=== PATIENT | female | born 1995 | race Caucasian/White ===

== ENCOUNTER 2020-07-20 12:04 | Inpatient (IN) | payer BC ==
[2020-07-20] MEDS ORDERED: DEXTROSE 5%-LACTATED RINGERS 1,000 ML IV SCH (13:30)
[2020-07-20] MEDS ORDERED: LIDOCAINE 0.5% (PF) 5 MG/ML (50 ML SDV) SQ PRN (13:38)
[2020-07-20] MEDS ORDERED: TERBUTALINE 1 MG/ML VIAL SQ PRN (13:38)
[2020-07-20] MEDS ORDERED: OXYTOCIN 10 UNIT/ML 1 ML VIAL IM PRN (13:38)
[2020-07-20] MEDS ORDERED: METHYLERGONOVINE 0.2 MG/ML 1 ML AMP IM PRN (13:38)
[2020-07-20] MEDS ORDERED: CARBOPROST TROMETHAMINE 250 MCG/ML 1 ML AMP IM PRN (13:38)
[2020-07-20] MEDS ORDERED: OXYTOCIN 30 UNITS/500 ML NS 30 UNIT in SALINE 1 500ML.BAG IV SCH (13:45)
[2020-07-20] MEDS: LACTATED RINGERS 1,000 ML IV SCH ×2 (14:01→19:18)
[2020-07-20 14:17] LABS: Basophils % (A) 0 %; Eosinophils # (A) 0.1 k/uL (0-0.7); Eosinophils % (A) 0 %; HCT 41.5 % (34.0-46.0); HGB 13.6 gm/dL (11.4-16.0); Lymphocytes # (A) 1.1 k/uL (1.0-4.8); Lymphocytes % (A) 9 %; MCH 32.4 pg (25.0-35.0); MCHC 32.8 g/dL (31.0-37.0); MCV 98.7 fL (80.0-100.0); Mean Platelet Volume 8.9; Monocytes # (A) 0.6 k/uL (0-1.0); Monocytes % (A) 5 %; Neutrophils # (A) 10.1 k/uL (1.3-7.7); Neutrophils % (A) 84 %; Platelet Count 153 k/uL (150-450); RBC 4.21 m/uL (3.80-5.40); RDW 14.3 % (11.5-15.5)
--- NOTE | 2020-07-20 15:21 | P.HPOB ---
History of Present Illness H&P Date: 07/20/20 Chief Complaint: Uterine contractions This is a 25-year-old white female 1 para 0 EDC 07/22/2020 39-5/7 weeks' gestation. Patient presented with regular uterine contractions. She was monitored in the triage area and made a small amount of cervical slip cover maker an hour. heart rate was revealing minimal variability, the decision was made to admit the patient for augmentation of labor. Fetus is been active throughout the . She denied vaginal bleeding or fluid leakage. Blood type is AB+, rubella status immune. VDRL testing, hepatitis B surface antigen, urine culture, group B strep cultures, gonorrhea and chlamydia cultures are all negative. One-hour Glucola 135. Flu shot administered. history otherwise unremarkable. Past medical history is essentially negative. Past surgical history is negative. Current medications vitamins daily. ALLERGIES none known. Social history patient is , is present. She denies alcohol or drug use. No tobacco smoking. Family history significant for hypertension. On exam this is a pleasant young female who is 5 foot 0 inches, 198 pounds, blood pressure 118/79, pulse 112. The general physical exam is within normal limits. Cervix is 47 m dilated, 80% effaced, -2 station, vertex presentation. Artificial amniorrhexis reveals thin meconium-stained fluid. Internal scalp lead is applied. Uterine contractions are occurring approximately every 3-4 minutes apart of mild intensity. heart rate is in the 140s with minimal variability. Impression: 39-5/7 weeks intrauterine , early active labor, meconium- stained fluid, minimal variability noted on heart tracing with no decelerations. Plan: Oxytocin augmentation per hospital protocol. Close maternal and surveillance. Anticipating normal spontaneous vaginal delivery. The possibili ty of primary section pending heart rate status is discussed with the patient and her . All questions answered. Review of Systems Constitutional: Reports as per HPI Past Medical History Past Medical History: No Reported History History of Any Multi-Drug Resistant Organisms: None Reported Past Surgical History: No Surgical Hx Reported Past Anesthesia/Blood Transfusion Reactions: No Reported Reaction Past Psychological History: No Psychological Hx Reported Smoking Status: Never smoker Past Alcohol Use History: None Reported Past Drug Use History: None Reported - Past Family History Father Family Medical History: Hypertension Medications and Allergies Home Medications Medication Instructions Recorded Confirmed Type Ferrous Sulfate [Iron] 325 mg PO DAILY 07/20/20 07/20/20 History Pnv,Calcium 72/Iron/Folic Acid 1 tab PO DAILY 07/20/20 07/20/20 History [ Plus Tablet] Allergies Allergy/AdvReac Type Severity Reaction Status Date / Time No Known Allergies Allergy Verified 07/20/20 12:14 Exam Vital Signs Temp Pulse Resp BP 07/20/20 14:43 97.3 F L 123 H 16 143/86 07/20/20 14:28 97.2 F L 112 H 16 118/79 Intake and Output 07/20/20 07/20/20 07/20/20 06:59 14:59 22:59 Other: Weight 89.811 kg See dictation under HPI please Results Result Diagrams: 07/20/20 14:00 Abnormal Lab Results - Last 24 Hours (Table) 07/20/20 Range/Units 14:00 WBC 12.0 H (3.8-10.6) k/uL Neutrophils # 10.1 H (1.3-7.7) k/uL Assessment and Plan Assessment: 39-5/7 weeks intrauterine , early active labor, meconium-stained fluid. Internal scalp lead applied for minimal variability noted on external monitor. Plan: Continue close maternal and surveillance. Analgesic options reviewed with the patient. All questions answered. Anticipate normal spontaneous vaginal delivery, but the possibility of section pending status is also discussed. Time with Patient: Less than 30
[2020-07-20] MEDS ORDERED: ROPIVACAINE 5MG/ML 20ML VIAL ONE (17:19)
[2020-07-20] MEDS ORDERED: SODIUM CHLORIDE 0.9% 100 ML BAG ONE (17:19)
[2020-07-20] MEDS ORDERED: fentaNYL (PF) 50 MCG/ML 5 ML AMP ONE (17:19)
[2020-07-20] MEDS ORDERED: BENZOCAINE/MENTHOL SPRAY 1 GM/SPRAY AEROSOL TOPICAL PRN (21:54)
[2020-07-20] MEDS ORDERED: diphenhydrAMINE 25 MG CAP PO PRN (21:54)
[2020-07-20] MEDS ORDERED: LANOLIN CREAM 5 GM TUBE TOPICAL PRN (21:54)
[2020-07-20] MEDS ORDERED: diphenhydrAMINE ELIXIR 25 MG/10 ML CUP PO PRN (21:54)
[2020-07-20] MEDS ORDERED: diphenhydrAMINE 50 MG/ML 1 ML VIAL IVP PRN ×2 (21:54)
[2020-07-20] MEDS ORDERED: diphenhydrAMINE 50 MG CAP PO PRN (21:54)
[2020-07-20] MEDS ORDERED: ZOLPIDEM 5 MG TAB PO PRN (21:54)
[2020-07-20] MEDS ORDERED: HYDROCORTISONE 2.5% RECTAL CREAM 30 GM TUBE RECTAL PRN (21:54)
[2020-07-20] MEDS ORDERED: SIMETHICONE 80 MG CHEWABLE PO PRN (21:54)
--- NOTE | 2020-07-20 21:54 | P.PROBDLV ---
Vaginal Delivery Note - . Vaginal Delivery Note: This is a 25-year-old white female 1 para 0 EDC 07/22/2020 39-5/7 weeks' gestation. Patient presented with uterine contractions, spontaneous. She was noted to make mild cervical change in the triage area and decreased hhzo-oz-cgyb variability was identified. Therefore she was admitted and oxytocin augmentation was started. Artificial amniorrhexis revealed meconium-stained fluid, internal scalp lead was applied. Blood type is AB+, rubella status immune, group strep cultures negative. Please see dictated history and physical examination for details. Epidural was ultimately placed per her request. She progressed well through the first stage of labor and became completely dilated at 2051 hours. She began the second stage of labor at that time. Occasional variable decelerations were noted, and several late decelerations were noted as well. However cixz-mb-lfxr variability picked up and excellent progress was made in the second stage. The perineal body was prepped and draped in usual sterile fashion. Infant's head delivered occiput anterior and he restituted accordingly. There was a nuchal cord 3 that was reduced on the perineal body. The left or anterior shoulder was then gently delivered from underneath the pubic symphysis at which time the oropharynx, nasopharynx, and external nares were all bulb suctioned. Patient was officially delivered of a liveborn male infant at 2127 hours. Umbilical cord was doubly clamped and ligated, he was handed to waiting nurses for evaluation where scores of 7 and 8 at one and 5 minutes respectively were given. Uterus is then massaged. Placenta delivered spontaneously, it was inspected and noted to be deeply meconium-stained, but otherwise intact with trivascular cord at 2130 hours. Uterus is then massaged. Careful inspection of the cervix, vagina, perineum, periurethral, and perirectal areas revealed a second-degree midline laceration that was easily repaired in the usual sterile fashion utilizing 3-0 repeat suture. All sponge needle and enhancement counts are correct. Infant weighed 3670 g or 8 pounds 1.5 ounces. Patient is requesting circumcision for her son.
[2020-07-20] MEDS ORDERED: OXYTOCIN 20 UNITS/1000 ML NS 1,000 ML IV SCH (22:00)
[2020-07-20] MEDS: IBUPROFEN 600 MG TAB PO PRN (22:06)
[2020-07-21] MEDS: ACETAMINOPHEN TAB 325 MG TAB PO PRN (04:18)
--- NOTE | 2020-07-21 08:30 | P.PN ---
Subjective Progress Note Date: 07/21/20 Principal diagnosis: Post day #1 Slept well. Minimal lochia rubra. Pain well controlled. Tired, otherwise no complaints Objective - Vital Signs Vital signs: Vital Signs Temp 97.7 F 07/21/20 04:00 Pulse 103 H 07/21/20 04:00 Resp 16 07/21/20 04:00 BP 121/76 07/21/20 04:00 Pulse Ox Intake & Output 07/20/20 07/21/20 07/21/20 18:59 06:59 18:59 Output Total 600 Balance -600 Weight 89.811 kg Output: Estimated Blood Loss 600 Other: # Voids 1 - Constitutional General appearance: Present: average body habitus, cooperative - EENT Eyes: Present: PERRLA ENT: Present: hearing grossly normal - Neck Thyroid: bilateral: normal size - Respiratory Respiratory: bilateral: CTA - Cardiovascular Rhythm: regular - Gastrointestinal General gastrointestinal: Present: normal bowel sounds - Genitourinary Genitourinary Comment(s): Uterus firm, midline, symmetric, 18 week size, nontender. - Integumentary Integumentary: Present: normal - Neurologic Neurologic: Present: CNII-XII intact - Musculoskeletal Musculoskeletal: Present: gait normal, strength equal bilaterally - Psychiatric Psychiatric: Present: A&O x's 3, appropriate affect, intact judgment & insight - Labs CBC & Chem 7: 07/20/20 14:00 Labs: Abnormal Lab Results - Last 24 Hours (Table) 07/20/20 Range/Units 14:00 WBC 12.0 H (3.8-10.6) k/uL Neutrophils # 10.1 H (1.3-7.7) k/uL Assessment and Plan Assessment: Doing well day #1 Plan: Continue care. Anticipate discharge home tomorrow.
[2020-07-21] MEDS: SENNOSIDES-DOCUSATE SODIUM 1 EACH TAB PO SCH ×2 (08:33→19:53)
[2020-07-21] MEDS: IBUPROFEN 600 MG TAB PO PRN ×3 (08:33→19:53)
[2020-07-21 18:56] VITALS: RESP 16
[2020-07-22] MEDS: IBUPROFEN 600 MG TAB PO PRN ×3 (04:24→18:00)
[2020-07-22] MEDS: SENNOSIDES-DOCUSATE SODIUM 1 EACH TAB PO SCH (08:00)
[2020-07-22 08:21] VITALS: TEMP 98.1
--- NOTE | 2020-07-22 11:51 | P.DS ---
Providers Date of admission: 07/20/20 13:40 Expected date of discharge: 07/22/20 Attending physician: Kiki Brown Primary care physician: Stated None - Discharge Diagnosis(es) (1) Term Current Visit: Yes Status: Acute (2) Meconium in amniotic fluid Current Visit: Yes Status: Acute (3) Normal spontaneous vaginal delivery Current Visit: Yes Status: Acute (4) Nuchal cord Current Visit: Yes Status: Acute (5) Perineal laceration with delivery, second degree Current Visit: Yes Status: Acute Hospital Course: This is a 25-year-old 1 now para 1 woman who is admitted at 39-5/7 weeks gestation with spontaneous uterine contractions. She had some decreased variability of the heart rate tracing in triage and the decision was made to admit for induction of labor. She received Pitocin induction of labor and artificial rupture of membranes. Meconium staining of the fluid was noted at time of rupture. She received an epidural anesthetic and went on to deliver a liveborn male . Delivery was notable for nuchal cord 3. Apgars were 7 at 1 minute and 8 at 5 minutes and weight was 8 lbs. 2 oz. Please see delivery summary for details. The was admitted to the special care nursery for further evaluation. By day #1 the patient was doing very well. She was ambulating and voiding without difficulty and was using the breast pump. Her vital signs were stable and her lochia was decreasing. By day #2 she continued to do well. She is successfully using the breast pump. Her lochia had significantly decreased and her pain was well-controlled with oral ibuprofen. She was therefore discharged home with routine instructions for care and follow-up. Patient Condition at Discharge: Good Plan - Discharge Summary New Discharge Prescriptions: No Action Pnv,Calcium 72/Iron/Folic Acid [ Plus Tablet] 1 tab PO DAILY Ferrous Sulfate [Iron] 325 mg PO DAILY Discharge Medication List Ferrous Sulfate [Iron] 325 mg PO DAILY 07/20/20 [History] Pnv,Calcium 72/Iron/Folic Acid [ Plus Tablet] 1 tab PO DAILY 07/20/20 [History] Follow up Appointment(s)/Referral(s): Kiki Brown MD [STAFF PHYSICIAN] - 6 Weeks Activity/Diet/Wound Care/Special Instructions: Follow-up in the office in 6 weeks . Call with any concerning signs or symptoms including heavy vaginal bleeding, severe abdominal pain, fever greater than 101, swelling or redness of the lower extremities, foul vaginal discharge, or signs of depression. Nothing in the vagina for 6 weeks after delivery, specifically no intercourse. Discharge Disposition: HOME SELF-CARE
[2020-07-22 17:02] VITALS: BP 110/66; PULSE 70
[2020-07-22] MEDS: ACETAMINOPHEN TAB 325 MG TAB PO PRN (20:32)
== END 2020-07-22 21:50 | disposition home or self-care (01) | DRG 807 ==
LOC: FBPOP 12:04 → 4FBP 13:40
PROVIDERS: ADMIT Obstetrics & Gynecology; ATTEND Obstetrics & Gynecology
PROC: 10E0XZZ Delivery of Products of Conception, External Approach (ICD-10-PCS; principal; 2020-07-20)
PROC: 0KQM0ZZ Repair Perineum Muscle, Open Approach (ICD-10-PCS; 2020-07-20)
PROC: 3E0R3BZ Introduction of Anesthetic Agent into Spinal Canal, Percutaneous Approach (ICD-10-PCS; 2020-07-20)
DX: O77.0 Labor and delivery complicated by meconium in amniotic fluid (principal); Z37.0 Single live birth; Z3A.39 39 weeks gestation of pregnancy; Z79.899 Other long term (current) drug therapy; O76 Abnormality in fetal heart rate and rhythm complicating labor and delivery; O69.81X0 Labor and delivery complicated by cord around neck, without compression, not applicable or unspecified; O70.1 Second degree perineal laceration during delivery; Z23 Encounter for immunization; Z82.49 Family history of ischemic heart disease and other diseases of the circulatory system
CPT/HCPCS: 59025; 85025; 86850; 86900; 86901; 99213

== ENCOUNTER 2023-05-03 12:12 | Inpatient (IN) | payer BC ==
[2023-05-12] MEDS ORDERED: TRANEXAMIC 1,000 MG/100ML-NACL 1,000 MG in EMPTY BAG 1 BAG IV PRN (06:38)
[2023-05-12] MEDS ORDERED: CARBOPROST TROMETHAMINE 250 MCG/ML 1 ML AMP IM PRN (06:38)
[2023-05-12] MEDS ORDERED: LIDOCAINE 0.5% (PF) 5 MG/ML (50 ML SDV) SQ PRN (06:38)
[2023-05-12] MEDS ORDERED: TERBUTALINE 1 MG/ML VIAL SQ PRN (06:38)
[2023-05-12] MEDS ORDERED: METHYLERGONOVINE 0.2 MG/ML 1 ML AMP IM PRN (06:38)
[2023-05-12] MEDS ORDERED: miSOPROStoL 200 MCG TAB PO PRN (06:38)
[2023-05-12] MEDS ORDERED: OXYTOCIN 10 UNIT/ML 1 ML VIAL IM PRN (06:38)
[2023-05-12 06:44] LABS: Basophils % (A) 1 %; Eosinophils # (A) 0.1 k/uL (0-0.7); Eosinophils % (A) 1 %; HCT 35.9 % (34.0-46.0); HGB 12.5 gm/dL (11.4-16.0); Lymphocytes # (A) 1.9 k/uL (1.0-4.8); Lymphocytes % (A) 25 %; MCH 32.6 pg (25.0-35.0); MCHC 34.8 g/dL (31.0-37.0); MCV 93.8 fL (80.0-100.0); Mean Platelet Volume 8.6; Monocytes # (A) 0.5 k/uL (0-1.0); Monocytes % (A) 6 %; Neutrophils # (A) 5.1 k/uL (1.3-7.7); Neutrophils % (A) 66 %; Platelet Count 143 k/uL (150-450); RBC 3.82 m/uL (3.80-5.40); RDW 14.4 % (11.5-15.5); WBC 7.7 k/uL (3.8-10.6)
[2023-05-12] MEDS ORDERED: OXYTOCIN 30 UNITS/500 ML NS 30 UNIT in SALINE 1 500ML.BAG IV SCH ×2 (06:45→16:15)
[2023-05-12] MEDS: LACTATED RINGERS 1,000 ML IV SCH ×2 (06:55→11:00)
--- NOTE | 2023-05-12 08:33 | P.HPOB ---
History of Present Illness H&P Date: 05/12/23 Chief Complaint: induction of labor for post-dates Ms. Lopez is a 28 year old at 41 weeks and 0 day with EDC of 05/05/2023 (by 8 week US not consistent with LMP) who presents to labor and delivery for induction of labor for post-dates. The has been uncomplicated. Growth ultrasound of the fetus at 31 weeks estimated weight to be in the 63%ile. Obstetric history: 1 at 39 weeks for male fetus weighing 8#1.5oz, no complications. Maternal work-up: GBS negative Past medical history: None Past surgical history: None Medications: vitamins Past Medical History Past Medical History: No Reported History History of Any Multi-Drug Resistant Organisms: None Reported Past Surgical History: No Surgical Hx Reported Past Anesthesia/Blood Transfusion Reactions: No Reported Reaction Past Psychological History: No Psychological Hx Reported Smoking Status: Never smoker Past Alcohol Use History: None Reported Past Drug Use History: None Reported - Past Family History Father Family Medical History: Hypertension Medications and Allergies Home Medications Medication Instructions Recorded Confirmed Type Vit No.180/Iron/Folic 1 tab PO DAILY 07/20/20 05/12/23 History [ Plus Tablet] Allergies Allergy/AdvReac Type Severity Reaction Status Date / Time No Known Allergies Allergy Verified 08/13/21 13:50 Exam Vital Signs Temp Pulse Resp BP 05/12/23 08:00 97.2 F L 91 16 103/72 Intake and Output 05/11/23 05/12/23 05/12/23 22:59 06:59 14:59 Other: Weight 88.904 kg 88.904 kg Focused physical exam is performed. This is a healthy-appearing in no apparent distress. Breathing is non-labored. Abdomen is soft, non-tender, gravid. Cervix is 3 centimeters dilated, 60% effaced, and -2 station. AROM is undertaken revealing clear amniotic fluid. Extremities are non-tender, non- edematous. heart tracing is Category I on pitocin. Tocometer is graphing c ontractions every 5-7 minutes. Results Result Diagrams: 05/12/23 06:38 Abnormal Lab Results - Last 24 Hours (Table) 05/12/23 Range/Units 06:38 Plt Count 143 L (150-450) k/uL Assessment and Plan Assessment: 28 year old at 41 weeks and 0 days here for IOL Plan: Admit, NPO, mIVF, pitocin per protocol, s/p AROM for clear fluid, epidural prn. Continuous EFM and tocometer. Close monitoring of patient. Time with Patient: Less than 30 (10 minutes)
[2023-05-12] MEDS ORDERED: fentaNYL (PF) 50 MCG/ML 5 ML AMP ONE (11:21)
[2023-05-12] MEDS ORDERED: ROPIVACAINE 5 MG/ML 20 ML AMPULE ONE (11:21)
[2023-05-12] MEDS ORDERED: SODIUM CHLORIDE 0.9% 100 ML BAG ONE (11:21)
[2023-05-12] MEDS ORDERED: diphenhydrAMINE 25 MG CAP PO PRN (16:07)
[2023-05-12] MEDS ORDERED: SIMETHICONE 80 MG CHEWABLE PO PRN (16:07)
[2023-05-12] MEDS ORDERED: diphenhydrAMINE 50 MG CAP PO PRN (16:07)
[2023-05-12] MEDS ORDERED: diphenhydrAMINE 50 MG/ML 1 ML VIAL IVP PRN ×2 (16:07)
[2023-05-12] MEDS ORDERED: LANOLIN CREAM 5 GM TUBE TOPICAL PRN (16:07)
[2023-05-12] MEDS ORDERED: ZOLPIDEM 5 MG TAB PO PRN (16:07)
[2023-05-12] MEDS ORDERED: BENZOCAINE/MENTHOL SPRAY 1 GM/SPRAY AEROSOL TOPICAL PRN (16:07)
[2023-05-12] MEDS ORDERED: HYDROCORTISONE 2.5% RECTAL CREAM 30 GM TUBE RECTAL PRN (16:07)
--- NOTE | 2023-05-12 16:07 | P.PROBDLV ---
Vaginal Delivery Note - . Vaginal Delivery Note: DATE OF SERVICE: 05/12/2023 PROCEDURE: Normal Vaginal Delivery ATTENDING: Dr. Bea Gomes MD ESTIMATED BLOOD LOSS: 150 mL FINDINGS: VFI, Apgars 9/9. Weight 8 pounds and 8 ounces (3840 grams) PROCEDURE: Mrs. Lopez is a 28 year old at 41 weeks presenting to labor and delivery for induction of labor for post-dates . The has been uncomplicated. For further details, please review the admitting H&P. Pitocin induction was started and AROM was undertaken revealing clear amniotic fluid. The patient received epidural anesthesia per her request. The patient was completely dilated at 1523. The patient pushed effectively, bringing the head down. The head was delivered over an intact perineum without difficulty followed by shoulder and body. A viable female was delivered at 1540. The infant was placed on the maternal abdomen and bulb suctioned. Cord was clamped and cut after a 30-second delay. The infant was handed off to the pediatric team. The umbilical cord was avulsed from the placenta. Placenta was manually removed at 1545. The placenta was inspecetd and found to be intact. Oxytocin was started to facilitate uterine tone. Uterine fundus was found to be firm and below the umbilicus upon fundal massage. Thorough examination of the cervix, vagina, periurethral area, and perineum revealed a small second degree laceration. The patient is stable and allowed to begin the bonding process.require repair and an intact perineum. Patient stable .
[2023-05-12] MEDS: IBUPROFEN 600 MG TAB PO PRN ×2 (16:35→23:48)
[2023-05-12] MEDS: SENNOSIDES-DOCUSATE SODIUM 1 EACH TAB PO SCH (20:31)
[2023-05-12] MEDS: ACETAMINOPHEN TAB 325 MG TAB PO PRN (20:31)
[2023-05-13] MEDS: IBUPROFEN 600 MG TAB PO PRN ×2 (05:56→11:12)
[2023-05-13 07:10] LABS: Basophils % (A) 0 %; Eosinophils # (A) 0.1 k/uL (0-0.7); Eosinophils % (A) 1 %; HCT 32.3 % (34.0-46.0); HGB 10.8 gm/dL (11.4-16.0); Lymphocytes # (A) 2.1 k/uL (1.0-4.8); Lymphocytes % (A) 25 %; MCH 31.6 pg (25.0-35.0); MCHC 33.6 g/dL (31.0-37.0); MCV 94.2 fL (80.0-100.0); Mean Platelet Volume 8.1; Monocytes # (A) 0.5 k/uL (0-1.0); Monocytes % (A) 6 %; Neutrophils # (A) 5.7 k/uL (1.3-7.7); Neutrophils % (A) 67 %; Platelet Count 127 k/uL (150-450); RBC 3.43 m/uL (3.80-5.40); RDW 14.4 % (11.5-15.5); WBC 8.5 k/uL (3.8-10.6)
[2023-05-13] MEDS: ACETAMINOPHEN TAB 325 MG TAB PO PRN (08:50)
[2023-05-13] MEDS: SENNOSIDES-DOCUSATE SODIUM 1 EACH TAB PO SCH (08:50)
[2023-05-13 09:09] VITALS: BP 116/78; PULSE 89; RESP 16; TEMP 97.9
--- NOTE | 2023-05-13 13:15 | P.DS ---
Providers Date of admission: 05/12/23 06:22 Expected date of discharge: 05/13/23 Attending physician: Bea Gomes MD Primary care physician: Stated None Hospital Course: This is a 28-year-old who is now day #1 status post a normal vaginal delivery after induction of labor for postdates. The patient is doing well this morning and had no acute events overnight. She has no complaints this morning. She reports minimal lochia, passing flatus, voiding without difficulty, ambulating, and eating/drinking without nausea or vomiting. Infant doing well at bedside, is going well. She denies chest pain, shortness of breathing, fevers, or chills overnight. She denies pain or swelling in the legs. restrictions are reviewed with the patient including pelvic rest for 6 weeks. The patient is encouraged to call the office if she experiences any heavy bleeding, foul-smelling discharge, breast complaints, or any if she has any other concerns. She will follow up in the office within 6 weeks for exam. All questions are answered. Assessment: 28 year old now PPD#1 s/p normal vaginal delivery Patient Condition at Discharge: Good Plan - Discharge Summary Discharge Rx Participant: No New Discharge Prescriptions: No Action Vit No.180/Iron/Folic [ Plus Tablet] 1 tab PO DAILY Discharge Medication List Vit No.180/Iron/Folic [ Plus Tablet] 1 tab PO DAILY 07/20/20 [History] Follow up Appointment(s)/Referral(s): Bea Gomes MD [STAFF PHYSICIAN] - 6 Weeks Activity/Diet/Wound Care/Special Instructions: Instructions 1. Do not begin any exercise program for 3 weeks. 2. Do not resume sexual relations for 6 weeks or longer if uncomfortable. 3. You may take tub baths or showers at any time. 4. You may use tampons if desired after 6 weeks. 5. Keep any areas repaired with stitches clean and dry. 6. If you are not nursing, wear a good fitting, supportive bra during the day and limit fluid intake for at least 1 week to prevent breast engorgement. 7. Call the office, , within the next week to make appointment for your 6 week checkup if it has not already been made. 8. Report any of the following occurrences to the doctor promptly: a. Heavy, excessive bleeding b. Chills, fever c. Burning or frequency of urination d. Pain or redness and breasts if nursing e. Increasing pain or swelling of vulva (stitches). Discharge Disposition: HOME SELF-CARE
== END 2023-05-13 16:00 | disposition home or self-care (01) | DRG 807 ==
LOC: 4FBP 05-12 06:22
PROVIDERS: ADMIT Obstetrics & Gynecology; ATTEND Obstetrics & Gynecology
PROC: 3E033VJ Introduction of Other Hormone into Peripheral Vein, Percutaneous Approach (ICD-10-PCS; principal; 2023-05-12)
PROC: 10E0XZZ Delivery of Products of Conception, External Approach (ICD-10-PCS; 2023-05-12)
PROC: 0KQM0ZZ Repair Perineum Muscle, Open Approach (ICD-10-PCS; 2023-05-12)
PROC: 10907ZC Drainage of Amniotic Fluid, Therapeutic from Products of Conception, Via Natural or Artificial Opening (ICD-10-PCS; 2023-05-12)
PROC: 3E0R3BZ Introduction of Anesthetic Agent into Spinal Canal, Percutaneous Approach (ICD-10-PCS; 2023-05-12)
DX: O48.0 Post-term pregnancy (principal); Z37.0 Single live birth; O70.1 Second degree perineal laceration during delivery; Z3A.41 41 weeks gestation of pregnancy; Z28.310 Unvaccinated for COVID-19
CPT/HCPCS: 85025; 86850; 86900; 86901

== ENCOUNTER 2025-02-07 06:17 | Inpatient (IN) | payer BC ==
[2025-02-07] MEDS ORDERED: OXYTOCIN 10 UNIT/ML 1 ML VIAL IM PRN (06:24)
[2025-02-07] MEDS ORDERED: TRANEXAMIC 1,000 MG/100ML-NACL 1,000 MG in EMPTY BAG 1 BAG IV PRN (06:24)
[2025-02-07] MEDS ORDERED: CARBOPROST TROMETHAMINE 250 MCG/ML 1 ML AMP IM PRN (06:24)
[2025-02-07] MEDS ORDERED: LIDOCAINE 0.5% (PF) 5 MG/ML (50 ML SDV) SQ PRN (06:24)
[2025-02-07] MEDS ORDERED: miSOPROStoL 200 MCG TAB RECTAL PRN (06:24)
[2025-02-07] MEDS ORDERED: TERBUTALINE 1 MG/ML VIAL SQ PRN (06:24)
[2025-02-07] MEDS ORDERED: miSOPROStoL 200 MCG TAB PO PRN (06:24)
[2025-02-07] MEDS ORDERED: METHYLERGONOVINE 0.2 MG/ML 1 ML AMP IM PRN (06:24)
[2025-02-07] MEDS: LACTATED RINGERS 1,000 ML IV SCH (06:51)
[2025-02-07 07:07] LABS: Basophils # (A) 0.04 10*3/uL (0.00-0.10); Basophils % (A) 0.6 %; Eosinophils # (A) 0.05 10*3/uL (0.04-0.35); Eosinophils % (A) 0.7 %; HGB 10.7 g/dL (12.0-15.0); Lymphocytes # (A) 2.19 10*3/uL (0.90-5.00); Lymphocytes % (A) 31.7 %; MCH 29.2 pg (27.0-32.0); MCHC 33.4 g/dL (32.0-37.0); MCV 87.2 fL (80.0-97.0); Mean Platelet Volume 10.8 fL (9.5-12.2); Monocytes # (A) 0.51 10*3/uL (0.20-1.00); Monocytes % (A) 7.4 %; Neutrophils # (A) 4.07 10*3/uL (1.80-7.70); Platelet Count 190 10*3/uL (140-440); RBC 3.67 10*6/uL (4.10-5.20); RDW 14.1 % (11.5-14.5)
[2025-02-07] MEDS: OXYTOCIN 30 UNITS/500 ML NS 30 UNIT in SALINE 1 500ML.BAG IV SCH (07:30)
--- NOTE | 2025-02-07 08:46 | P.HPOB ---
History of Present Illness H&P Date: 02/07/25 Chief Complaint: elective induction of labor Ms. Lopez is a 30 year old at 39 weeks and 2 days gestation by LMP consistent with 8 week US who presents for elective induction of labor. Her has been uncomplicated. The fetus is estimated in the 61%ile for gestational age based on a 32 week US. Obstetric history: 2 FTVD without complications work-up: blood type AB positive, antibody screen negative, rubella immune, VDRL non-reactive, HBsAg negative, HIV negative, HCV non-reactive, gonorrhea negative, chlamydia negative, 1 hour GTT elevated > 3 hour GTT wnl, GBS negative Past Medical History Past Medical History: No Reported History History of Any Multi-Drug Resistant Organisms: None Reported Past Surgical History: No Surgical Hx Reported Past Anesthesia/Blood Transfusion Reactions: No Reported Reaction Past Psychological History: No Psychological Hx Reported Smoking Status: Never smoker Past Alcohol Use History: None Reported Past Drug Use History: None Reported - Past Family History Father Family Medical History: Hypertension Medications and Allergies Home Medications Medication Instructions Recorded Confirmed Type Vit No.180/Iron/Folic 1 tab PO DAILY 07/20/20 02/07/25 History [ Plus Tablet] Allergies Allergy/AdvReac Type Severity Reaction Status Date / Time No Known Allergies Allergy Verified 08/13/21 13:50 Exam Vital Signs Temp Pulse Resp BP Pulse Ox 02/07/25 06:42 96.6 F L 80 18 126/68 97 Intake and Output 02/06/25 02/07/25 02/07/25 22:59 06:59 14:59 Other: Weight 92.986 kg Focused physical exam is performed. This is a healthy-appearing in no apparent distress. Breathing is non-labored. Abdomen is gravid and non-tender. Cervical exam is 2/70/-3. AROM is undertaken with clear fluid noted. Extremities non-tender and non-edematous. heart tones are Category I and tocometer is graphing contractions irregular. Results Result Diagrams: 02/07/25 06:30 Abnormal Lab Results - Last 24 Hours (Table) 02/07/25 Range/Units 06:30 RBC 3.67 L (4.10-5.20) 10*6/uL Hgb 10.7 L (12.0-15.0) g/dL Hct 32.0 L (37.2-46.3) % Assessment and Plan Assessment: 30 year old at 39 weeks and 2 days presenting for elective induction of labor Plan: Admit, clear liquid diet, pitocin per protocol, continuous EFM and tocometer, epidural prn
[2025-02-07] MEDS ORDERED: SODIUM CHLORIDE 0.9% 250 ML BAG ONE (11:34)
[2025-02-07] MEDS ORDERED: fentaNYL (PF) 50 MCG/ML 5 ML AMP ONE (11:34)
[2025-02-07] MEDS ORDERED: ROPIVACAINE 5 MG/ML 30 ML VIAL ONE (11:34)
[2025-02-07] MEDS ORDERED: ZOLPIDEM 5 MG TAB PO PRN (18:45)
[2025-02-07] MEDS ORDERED: HYDROCORTISONE 2.5% RECTAL CREAM 30 GM TUBE RECTAL PRN (18:45)
[2025-02-07] MEDS ORDERED: BENZOCAINE/MENTHOL SPRAY 1 GM/SPRAY AEROSOL TOPICAL PRN (18:45)
[2025-02-07] MEDS ORDERED: LANOLIN CREAM 1 GM TUBE TOPICAL PRN (18:45)
[2025-02-07] MEDS ORDERED: SIMETHICONE 80 MG CHEWABLE PO PRN (18:45)
[2025-02-07] MEDS ORDERED: diphenhydrAMINE 50 MG/ML 1 ML VIAL IVP PRN ×2 (18:45)
[2025-02-07] MEDS ORDERED: diphenhydrAMINE 25 MG CAP PO PRN (18:45)
[2025-02-07] MEDS ORDERED: diphenhydrAMINE 50 MG CAP PO PRN (18:45)
--- NOTE | 2025-02-07 18:45 | P.PROBDLV ---
Vaginal Delivery Note - . Vaginal Delivery Note: DATE OF SERVICE: 02/07/2025 PROCEDURE: Normal Vaginal Delivery ATTENDING: Dr. Bea Gomes MD ESTIMATED BLOOD LOSS: 25 mL FINDINGS: VFI, Apgars 8/9. Weight 8 pounds and 1 ounce (3680 grams) PROCEDURE: Ms. Lopez is a 30 year old at 39 weeks and 2 days presenting to labor and delivery for elective induction of labor. The has been essentially uncomplicated. For further details, please review the admitting H&P. AROM was undertaken at 825 revealing clear amniotic fluid. The patient received epidural anesthesia per her request. The patient was completely dilated at 1812. She pushed effectively and delivered a viable female was delivered at 1829. The was placed on the maternal abdomen and bulb suctioned. The infant was noted to be spontaneously crying. Cord was clamped and cut after a 30-second delay. The infant was handed off to the pediatric team. Placenta was delivered whole with gentle cord traction. Oxytocin was started to facilitate uterine tone. Uterine fundus was found to be firm and below the umbilicus upon fundal massage. Thorough examination of the cervix, vagina, periurethral area, and perineum revealed a small first degree perineal laceration that was hemostatic and did not require repair. The patient is stable and allowed to begin the bonding process.
[2025-02-07 18:52] VITALS: RESP 16
[2025-02-07] MEDS: ACETAMINOPHEN TAB 500 MG TAB PO SCH (19:33)
[2025-02-07] MEDS: SENNOSIDES-DOCUSATE SODIUM 1 EACH TAB PO SCH (19:34)
[2025-02-08] MEDS: IBUPROFEN 800 MG TAB PO SCH (00:25)
[2025-02-08 05:55] LABS: Basophils # (A) 0.04 10*3/uL (0.00-0.10); Basophils % (A) 0.4 %; Eosinophils # (A) 0.06 10*3/uL (0.04-0.35); Eosinophils % (A) 0.6 %; HCT 31.5 % (37.2-46.3); Lymphocytes # (A) 1.98 10*3/uL (0.90-5.00); Lymphocytes % (A) 20.4 %; MCH 28.2 pg (27.0-32.0); MCHC 31.7 g/dL (32.0-37.0); MCV 88.7 fL (80.0-97.0); Monocytes # (A) 0.57 10*3/uL (0.20-1.00); Monocytes % (A) 5.9 %; Neutrophils # (A) 7.01 10*3/uL (1.80-7.70); Neutrophils % (A) 72.2 %; Platelet Count 159 10*3/uL (140-440); RBC 3.55 10*6/uL (4.10-5.20); RDW 14.2 % (11.5-14.5); WBC 9.71 10*3/uL (4.50-10.00)
--- NOTE | 2025-02-08 08:36 | P.DS ---
Providers Date of admission: 02/07/25 06:17 Expected date of discharge: 02/08/25 Attending physician: Bea Gomes MD Primary care physician: Stated None Hospital Course: 30 year old now PPD#1 s/p after elective induction of labor at 39 weeks and 2 days. The patient is doing well this morning and had no acute events overnight. She has no complaints this morning. She reports minimal lochia, passing flatus, voiding without difficulty, ambulating, and eating/drinking without nausea or vomiting. doing well at bedside. She denies chest pain, shortness of breathing, fevers, or chills overnight. She denies pain or swelling in the legs. restrictions are reviewed with the patient including pelvic rest for 6 weeks. The patient is encouraged to call the office if she experiences any heavy bleeding, foul-smelling discharge, breast complaints, or any if she has any other concerns. She will follow up in the office in 6 weeks for exam. All questions are answered. Patient Condition at Discharge: Good Plan - Discharge Summary Discharge Rx Participant: No New Discharge Prescriptions: No Action Vit No.180/Iron/Folic [ Plus Tablet] 1 tab PO DAILY Discharge Medication List Vit No.180/Iron/Folic [ Plus Tablet] 1 tab PO DAILY 07/20/20 [History] Follow up Appointment(s)/Referral(s): Bea Gomes MD [STAFF PHYSICIAN] - 03/21/25 11:15 am Activity/Diet/Wound Care/Special Instructions: Instructions 1. Do not begin any exercise program for 3 weeks. 2. Do not resume sexual relations for 6 weeks or longer if uncomfortable. 3. You may take tub baths or showers at any time. 4. You may use tampons if desired after 6 weeks. 5. Keep any areas repaired with stitches clean and dry. 6. If you are not nursing, wear a good fitting, supportive bra during the day and limit fluid intake for at least 1 week to prevent breast engorgement. 7. Call the office, , within the next week to make appointment for your 6 week checkup if it has not already been made. 8. Report any of the following occurrences to the doctor promptly: a. Heavy, excessive bleeding b. Chills, fever c. Burning or frequency of urination d. Pain or redness and breasts if nursing e. Increasing pain or swelling of vulva (stitches). In addition to the above instructions, the following additional should be followed: 1. No heavy lifting or straining (exercising) until after 6 week checkup. 2. Keep abdominal incision clean and dry: You may wear a dressing if more comfortable. 3. Make office appointment for 2 weeks after delivery date. Discharge Disposition: HOME SELF-CARE
[2025-02-08 18:44] VITALS: BP 109/74; PULSE 86; TEMP 98.5
== END 2025-02-08 19:25 | disposition home or self-care (01) | DRG 807 ==
LOC: 4FBP 06:17
PROVIDERS: ADMIT Obstetrics & Gynecology; ATTEND Obstetrics & Gynecology
PROC: 10E0XZZ Delivery of Products of Conception, External Approach (ICD-10-PCS; principal; 2025-02-07)
PROC: 0HQ9XZZ Repair Perineum Skin, External Approach (ICD-10-PCS; 2025-02-07)
PROC: 10907ZC Drainage of Amniotic Fluid, Therapeutic from Products of Conception, Via Natural or Artificial Opening (ICD-10-PCS; 2025-02-07)
PROC: 3E033VJ Introduction of Other Hormone into Peripheral Vein, Percutaneous Approach (ICD-10-PCS; 2025-02-07)
DX: O70.0 First degree perineal laceration during delivery (principal); Z37.0 Single live birth; Z3A.39 39 weeks gestation of pregnancy; Z82.49 Family history of ischemic heart disease and other diseases of the circulatory system
CPT/HCPCS: 85025; 86850; 86900; 86901